=== PATIENT | male | born 1935 | race Caucasian/White ===

== ENCOUNTER 2017-04-16 22:38 | Inpatient (IN) | payer MEDICARE ==
--- NOTE | 2017-04-16 23:30 | ED Physician Chart ---
Chief Complaint/HPI - Patient Information Date Seen:: 04/16/17 Time Seen:: 22:50 Chief Complaint:: R hip pain History of Present Illness:: Brought in by ambulance from home because of R hip pain when he was found on the floor at home at about 9:30 pm this evening. Pt is Brazilian speaking. Interpretation is provided by his daughter Josie per pt's request. H & P are limited because pt has dementia and is not fully cooperative. No other injury or bodily pain. Pt does not appear to be in distress. Allergies:: Allergies Allergy/AdvReac Type Severity Reaction Status Date / Time No Known Allergies Allergy Verified 04/16/17 22:57 Vitals:: Vital Signs - 8 hr 04/16/17 22:40 Temp 98.3 F HR 60 RR 19 BP 120/54 O2 Sat % 99 Historian:: Patient, Family Member (Daughter Josie.) Family MD/PCP:: Dr. Handley LMP:: N/A Review:: Nurse's Note Reviewed Review of Systems - Review of Systems General/Constitutional: Other (Pt does not cooperate for ROS.) Past Medical History - Past Medical History Past Medical History: Dementia Family History: None Social History: Non Smoker, No Alcohol, No Drug Use, , Other (lives with his son.) Employment:: Retired. Surgical History: None Psychiatricy History: Dementia Medication: Reviewed Family Medical History - Family Member Daughter Ethnicity: Living Status: Still Living Physical Exam - Physical Examination General/Constitutional: Awake, Well-developed, well-nourished, Alert, No distress, Non-toxic appearing Other Gen/Cons comments:: Breathes comfortably, speaks clearly, but not fully cooperative. Head: Atraumatic Eyes: Lids, conjuctiva normal, PERRL, EOMI Skin: No ecchymosis, No lymphadenopathy Other Skin comments:: There is superficial abrasion noticed in proximal dorsal aspect of R forearm. No active bleeding. No gross deformity, ecchymosis, swelling, or tenderness. Good ROM of all joints in RUE. No detectable motor/sensory/vascular deficit. Good distal pulse. ENMT: External ears, nose nl, Nasal exam nl, Oropharynx nl Other ENMT comments:: Mucous membrane slightly dry. Neck: Nontender, Full ROM w/o pain, No JVD, No nuchal rigidity, No mass, No stridor Respiratory: Nl effort/Exclusion, Clear to Auscultation, No Wheeze/Rhonchi/Rales Cardio Vascular: RRR, No murmur, gallop, rubs, NL S1 S2 GI: No tenderness/rebounding/guarding, No organomegaly, No hernia, Normal BS's, Nondistended, No mass/bruits, No McBurney tenderness Other GI comments:: Abdomen is soft. Other Extremities comments:: RLE: tenderness in R hip with minimal movement. R hip is laterally rotated with mild shortening of RLE. No ecchymosis, erythema, swelling, or open wound noticed. No detectable motor/sensory/vascular deficit. Good distal pulse. Other Neuro/Psych comments:: Alert, knows his name, that he is in hospital and it is evening. Spontaneous movements noticed in all 4 extremities. Pt does not cooperate for full neurological exam. Labs/Radiology/EKG Results - Lab Results Results: Laboratory Tests 04/16/17 04/16/17 04/16/17 23:46 23:46 23:46 WBC 13.2 H RBC 3.17 L Hgb 10.8 L Hct 30.9 L MCV 97.6 MCH 34.2 H MCHC Differential 35.0 RDW 12.1 Plt Count 191 MPV 8.0 PT 10.2 INR 0.98 PTT (Actin FS) 25.9 L Sodium 135 L Potassium 3.4 L Chloride 100 Carbon Dioxide 26.3 Anion Gap 12.1 BUN 27 H Creatinine 3.6 H Est GFR ( Amer) TNP Est GFR (Non-Af Amer) TNP BUN/Creatinine Ratio 7.5 Glucose 132 H Whole Bld Lactic Acid Calcium 8.8 Total Bilirubin 0.5 AST 11 L ALT 6 L Alkaline Phosphatase 60 Creatine Kinase 59 Troponin I Total Protein 6.9 Albumin 3.4 L Globulin 3.5 Albumin/Globulin Ratio 1.0 04/16/17 04/17/17 23:46 00:20 WBC RBC Hgb Hct MCV MCH MCHC Differential RDW Plt Count MPV PT INR PTT (Actin FS) Sodium Potassium Chloride Carbon Dioxide Anion Gap BUN Creatinine Est GFR ( Amer) Est GFR (Non-Af Amer) BUN/Creatinine Ratio Glucose Whole Bld Lactic Acid 1.47 Calcium Total Bilirubin AST ALT Alkaline Phosphatase Creatine Kinase Troponin I 0.01 Total Protein Albumin Globulin Albumin/Globulin Ratio - Radiology Results Results: R hip X-ray: Based on my interpretation, intertrochanteric fracture. Official report is pending. - EKG Interpretations EKG Time:: 23:42 Rate & Rhythm: NSR with VR 62 Comments:: Normal ED Septic Shock - . Is Septic Shock (SBP<90, OR Lactate>4 mmol\L) present?: No - <6hrs of presentation: Vital Signs: Vital Signs - 8 hr 04/16/17 22:40 Temp 98.3 F HR 60 RR 19 BP 120/54 O2 Sat % 99 Reassessment (Disposition) - Reassessment Reassessment:: 2340 Pt remains stable. Pain medication was offered. Pt declined and stated that he only has pain when he moves his R hip only. 0125 Remaining lab results and R hip X-ray just became available. EKG, lab, and radiological findings have been reviewed with pt. Management plan has been discussed. Interpretation by his daughter Josie. 0135 Case was discussed with Dr. Vences with pertinent H & P, EKG, lab, and X -ray findings reviewed. Pt is to be admitted to [facility] under his care. He will arrange orthopedic consultation for pt in hospital. Reassessment Condition:: Improved - Diagnosis Diagnosis:: s/p fall with R hip fracture and R forearm abrasion, stable. Dehydration. Elevated BUN/Cr c/w renal insufficiency superimposed with prerenal azotemia. Mild hypokalemia. Mild anemia. - Patient Disposition Admitted to:: Med/Surg Admitting Medical Physician:: Laith Vences Time:: 01:40 Condition at Disposition:: Stable ED Discharge Plan - Patient Disposition Admit/Discharge/Transfer: Acute Care w/in this hosp
[2017-04-16] MEDS ORDERED: Triple Antibiotic 0.94 gm Pkt TP STA (23:40)
[2017-04-16 23:55] LABS: HEMOGLOBIN 10.8 gm/dL (12.6-17.4); RED CELL DISTRIBUTION WIDTH 12.1 % (11.5-20.0)
[2017-04-17] LABS: HEMATOCRIT 30.9 % (39.0-49.0); MEAN CELL VOLUME 97.6 fl (80-99); MEAN CORPUSCULAR HEMOGLOBIN 34.2 pg (27.0-31.0); PLATELET COUNT 191 Th/cmm (150-400); RED BLOOD COUNT 3.17 Mil/cmm (3.80-5.80)
[2017-04-17] MEDS ORDERED: Triple Antibiotic 0.94 gm Pkt TP ONE (00:05)
[2017-04-17 00:08] LABS: WHITE BLOOD COUNT 13.2 Th/cmm (4.8-10.8)
[2017-04-17 00:10] LABS: ALKALINE PHOSPHATASE 60 U/L (34-104); ANION GAP 12.1 (7.0-16.0); BILIRUBIN,TOTAL 0.5 mg/dL (0.3-1.0); BUN - UREA NITROGEN 27 mg/dL (7-25); BUN/CREATININE RATIO 7.5; CALCIUM SERUM 8.8 mg/dL (8.6-10.3); CARBON DIOXIDE 26.3 mEq/L (21.0-31.0); CHLORIDE 100 mEq/L (98-107); CREATININE - SERUM 3.6 mg/dL (0.7-1.3); GLUCOSE 132 mg/dL (70-105); INR 0.98 (0.5-1.4); POTASSIUM SERUM 3.4 mEq/L (3.5-5.1); PROTHROMBIN TIME (TEST) 10.2 SECONDS (9.5-11.5); SGOT 11 U/L (13-39); SGPT/ALT 6 U/L (7-52); SODIUM SERUM 135 mEq/L (136-145)
[2017-04-17] MEDS ORDERED: Sodium Chloride 0.9% 1,000 ML IV ONE (01:23)
[2017-04-17] MEDS ORDERED: Potassium Chloride 20 mEq ER Tab PO ONE ×2 (01:23→01:26)
[2017-04-17] MEDS ORDERED: Sodium Chloride 0.9% 1,000 ML IV SCH (02:18)
[2017-04-17] MEDS: HYDROmorphone 1 mg/mL 1mL Syr IVP PRN ×3 (02:28→16:30)
[2017-04-17 02:36] LABS: BAND NEUTROPHILE 2 % (0-10); NEUTROPHILS 86 % (40-80); TOTAL CELLS COUNTED 100
[2017-04-17 02:37] LABS: PLATELET ESTIMATE ADEQUATE (NORMAL)
--- NOTE | 2017-04-17 08:05 | Admit Criteria Form ---
Admit Criteria Forms - Admit Criteria Diagnosis: MUSCULOSKELETAL DISEASE [facility] Clinical Indications for Admission to Inpatient Care (Place 'X' for any and all applicable criteria): Hospital admission is needed for appropriate care of the patient because of 1 or more of the following: [X ]I. Fracture, dislocation, or other musculoskeletal injury requiring inpatient care(medical) as indicated by 1 or more of the following(4)(5)(6)(7) [ ]a) Vertebral fracture requiring observation for instability or neurologic compromise (8) [ ]b) Compartment syndrome (proven or cannot be ruled out during observation level of care) (9) [ ]c) Limb-threatening injury [ ]d) Major injury requiring inpatient stabilization such as traction initiation or external fixation before internal fixation or closure of complex or open fracture [X ]e) Major injury requiring inpatient treatment after emergency or observation level care (as appropriate) [X ]f) Severe pain requiring acute inpatient management [ ]g) Injury with suspicion of abuse or neglect (eg., child, dependent elderly) [ ]II. Newly diagnosed or suspected bone, joint, or orthopedic device infection (e.g., osteomyelitis, septic arthritis) needing 1 or more of the following(1)(2)(3) [ ]a) IV antibiotics that cannot be initiated in other than inpatient setting (e.g., patient too unstable or home infusion not available) [ ]b) Device removal or replacement [ ]c) Bone or soft tissue debridement [ ]d) Joint drainage (drain placement or repetitive aspirations) [ ]III. Severe rheumatologic disease (e.g., systemic lupus erythematosus, rheumatoid arthritis) with complications or comorbidities (Also use Optimal Recovery Care Criteria or General Recovery Criteria as appropriate on the basis of predominant condition), including 1 or more of the following( 10)(11)(12)(13) [ ]a) Severe infection (e.g., [employer] infection, sepsis) (14) [ ]b) Respiratory complications, including 1 or more of the following : [ ]i) Pleural effusion with respiratory compromise [ ]ii) Pulmonary hypertension with congestive failure [ ]iii) Respiratory failure [ ]iv) Pulmonary hemorrhage (15) [ ]c) Hematologic disease, including 1 or more of the following: [ ]i) Coagulopathy with bleeding [ ]ii) Thrombosis with hypercoagulable state [ ]iii) Thrombotic thrombocytopenic purpura [ ]d) Cerebritis with seizures, psychosis, or other severe abnormalities [ ]e) Vertebral destruction with monitoring needed for cervical myelopathy& possible respiratory compromise [ ]f) Exacerbation that requires inpatient treatment (e.g., intravenous immunosuppression) (16) [ ]g) Acute renal failure [ ]h) Cerebritis with seizures, psychosis, Altered mental status, or other neurologic abnormalities [ ]i) Pericardial effusion with tamponade [ ]j) Vertebral destruction, with monitoring needed for cervical myelopathy and possible respiratory compromise [ ]IV. Severe vasculitis with complications or comorbidities (Also use Optimal Recovery Care Criteria General Recovery Criteria as appropriate on the basis of predominant condition), including 1 or more of the following(11)(12)(17)(18)(19)(20) [ ]a) Exacerbation that requires inpatient treatment (e.g., intravenous immunosuppression) (19)(21) [ ]b) Pulmonary hemorrhage (15) [ ]c) [employer] vasculitis with seizures, psychosis, Altered mental status that is severe or persistent, or other severe abnormalities (22) [ ]d) Cerebral infarction [ ]e) Gastrointestinal ischemia [ ]f) Gangrene or threatened amputation [ ]g) Renal failure (16) [ ]h) Other significant complications of vasculitis ( eg., tissue or organ ischemia, organ dysfunction ) [ ]V. Severe myopathy as indicated by 1 or more of the following (28)(29) [ ]a) New onset of airway compromise or inability to swallow [ ]b) Respiratory deterioration with observation needed for impending respiratory failure [ ]c) Exacerbation that requires inpatient treatment (e.g., intravenous immunosuppression) [ ]. Severe crystal gout (arthropathy) indicated by 1 or more of the following (23)(24) [ ]a) Severe pain requiring acute inpatient management [ ]b) Exacerbation that requires inpatient treatment (e.g., intravenous treatment) [ ]VII.Rhabdomyolysis and 1 or more of the following (25)(26)(27) [ ]a) Acute renal failure [ ]b) Need for intravenous hydration after emergency or observation level care (as appropriate) [ ]c) Inability to maintain oral hydration [ ]d) Change in mental status [ ]e) Electrolyte abnormality that remains after emergency or observation level care (as appropriate) [ ]VIII Post amputation complication, as indicated by ANY ONE of the following [ ]a) Infection [ ]b) Dehiscence [ ]c) Myodesis failure [ ]IX. Severe pain requiring acute inpatient management due to musculoskeletal condition [ ]X. Musculoskeletal Disease and ALL of the following: [ ]a) Symptom or finding for which emergency and observation care have failed or are not considered appropriate (Use General Criteria: Observation Care as appropriate) [ ]b) Presence of ANY ONE of the following [ ]i) A General Admission Criteria [ ]ii) A Pediatric General Admission Criteria The [email or web address] content created by [facility] has been revised. The portions of the content which have been revised are identified through the use of italic text or in bold, and [facility] has neither reviewed nor approved the modified material. All other unmodified content is copyright [facility]. Please see references footnoted in the original [facility] edition 2016 Admit Criteria Met?: Yes
--- NOTE | 2017-04-17 10:19 | Diagnostic Imaging Report ---
Pelvis and right hip 2 views Indication: pain Comparison: none Findings: There is a comminuted angulated right intertrochanteric fracture. No dislocation. Osteopenia is noted. Advanced degenerative changes of lower lumbar spine are noted. Impression: Comminuted angulated right femoral intertrochanteric fracture. Note ER team was aware of the findings at the time of the exam.
--- NOTE | 2017-04-17 11:51 | History & Physical ---
ADMIT DATE: 04/17/2017 CHIEF COMPLAINT: Right hip pain. HISTORY OF PRESENT ILLNESS: This is the case of an 82-year-old male who was brought by ambulance to Emergency Room secondary to the patient was found on the floor of his home. The patient was sent to Emergency Room for evaluation and treatment. During evaluation in ER, it was found that the patient had fracture of the right hip, reason why the patient was hospitalized. PAST MEDICAL HISTORY: The patient has past medical history of dementia, end-stage renal disease, and no more information was not obtained secondary to the patient's mental condition. PAST SURGICAL HISTORY: Not available. FAMILY HISTORY: Unremarkable. ALLERGIES: No known allergies. MEDICATIONS: Reviewed. REVIEW OF SYSTEMS: Information was not obtained secondary to the patient's mental condition. PHYSICAL EXAMINATION: GENERAL: Does reveal fairly nourished and developed male, awake, alert, confused, not oriented, in no acute distress. LUNGS: Bilateral air entry. No wheezing or crackles. HEART: Heart is rhythmic. HEENT: Head is normocephalic and atraumatic. Nose: No evidence of nasal obstruction. Eyes: Pupils reactive to light. Ears: No evidence of any discharge. Mouth: Fairly . ABDOMEN: Soft, nontender, bowel sound is present. EXTREMITIES: There is some tenderness on the right hip on minimal movement and right leg is rotated to the right side. NEUROLOGICAL: The patient is awake, alert, confused, in no acute distress. Neurological examination was not completed secondary to the patient's mental and physical condition. IMPRESSION: 1. Fracture of the right hip. 2. End-stage renal disease, on hemodialysis. 3. Anemia. PLAN: 1. The patient will be admitted to the medical surgical floor. 2. The patient will be continued with jail medications. 3. Consult with Dr. Islas, Nephrology. 4. Consult with Ortho. 5. Heparin lock. 6. Regular diet. JOB# [id number]
--- NOTE | 2017-04-18 03:02 | Consultation ---
DATE OF CONSULTATION: 04/17/2017 HISTORY OF PRESENT ILLNESS: The patient is an 82-year-old male with history of dementia, end-stage renal disease, hypertension, comes in with status post fall, right hip pain, and found to have right femoral fracture. The patient is admitted. PAST MEDICAL HISTORY: History of hypertension, dementia, end-stage renal disease, and anemia. PAST SURGICAL HISTORY: AV fistula. FAMILY HISTORY: Unremarkable. ALLERGIES: No known drug allergies. MEDICATIONS: As listed in chart. LABORATORY DATA: Shows white count is 13.2, H and H of 10.8 and 30.9, platelets 191,000, potassium is 3.4. BUN is 27, creatinine 3.6, and glucose is 132. PHYSICAL EXAMINATION: VITAL SIGNS: Blood pressure is 124/55, heart rate 67, and temperature 97.8. HEENT: Anicteric sclerae. NECK: Supple. No JVD. LUNGS: Clear to auscultation bilaterally. CARDIOVASCULAR: Regular rate and rhythm. ABDOMEN: Soft, nontender, and nondistended. EXTREMITIES: Shows right leg is severely shorter than the left leg. ASSESSMENT: This is an 82-year-old male status post fall with right hip fracture, end-stage renal disease, and hypertension, and anemia who got an order for hemodialysis for tomorrow orthopedic surgery evaluation. JOB# [id number]
[2017-04-18 07:24] LABS: HEMATOCRIT 30.7 % (39.0-49.0); HEMOGLOBIN 10.8 gm/dL (12.6-17.4); MEAN CELL VOLUME 98.2 fl (80-99); MEAN CORPUSCULAR HEMOGLOBIN 34.6 pg (27.0-31.0); MEAN CORPUSCULAR HGB CONC 35.2 pg (28.0-36.0); MEAN PLATELET VOLUME 8.1 fl; PLATELET COUNT 179 Th/cmm (150-400); RED BLOOD COUNT 3.12 Mil/cmm (3.80-5.80); RED CELL DISTRIBUTION WIDTH 12.6 % (11.5-20.0)
[2017-04-18 07:37] LABS: INR 0.95 (0.5-1.4); PROTHROMBIN TIME (TEST) 9.9 SECONDS (9.5-11.5)
[2017-04-18 07:41] LABS: WHITE BLOOD COUNT 14.3 Th/cmm (4.8-10.8)
[2017-04-18 07:49] LABS: ANION GAP 11.3 (7.0-16.0); BUN - UREA NITROGEN 38 mg/dL (7-25); CALCIUM SERUM 9.5 mg/dL (8.6-10.3); CARBON DIOXIDE 26.9 mEq/L (21.0-31.0); CHLORIDE 103 mEq/L (98-107); CREATININE - SERUM 3.8 mg/dL (0.7-1.3); GLUCOSE 116 mg/dL (70-105); POTASSIUM SERUM 4.2 mEq/L (3.5-5.1); SODIUM SERUM 137 mEq/L (136-145)
[2017-04-18 08:15] LABS: BAND NEUTROPHILE 2 % (0-10); NEUTROPHILS 80 % (40-80); TOTAL CELLS COUNTED 100
[2017-04-18] MEDS: Vitamin D3 2,000 IU SGL PO SCH (08:17)
[2017-04-18] MEDS: HYDROmorphone 1 mg/mL 1mL Syr IVP PRN ×2 (09:05→20:12)
--- NOTE | 2017-04-18 09:11 | General Progress Note ---
Subjective - Review of Systems Service Date: 04/18/17 Subjective: I am fine Objective - Results Result Diagrams: 04/18/17 07:00 04/18/17 07:00 Recent Labs: Laboratory Last Values WBC 14.3 Th/cmm (4.8-10.8) H 04/18/17 07:00 RBC 3.12 Mil/cmm (3.80-5.80) L 04/18/17 07:00 Hgb 10.8 gm/dL (12.6-17.4) L 04/18/17 07:00 Hct 30.7 % (39.0-49.0) L 04/18/17 07:00 MCV 98.2 fl (80-99) 04/18/17 07:00 MCH 34.6 pg (27.0-31.0) H 04/18/17 07:00 MCHC Differential 35.2 pg (28.0-36.0) 04/18/17 07:00 RDW 12.6 % (11.5-20.0) 04/18/17 07:00 Plt Count 179 Th/cmm (150-400) 04/18/17 07:00 MPV 8.1 fl 04/18/17 07:00 Band Neutrophils % 2 % (0-10) 04/18/17 07:00 Neutrophils (Manual) 80 % (40-80) 04/18/17 07:00 Lymphocytes 10 % (20-50) L 04/18/17 07:00 Monocytes 8 % (2-10) 04/18/17 07:00 Platelet Estimate ADEQUATE (NORMAL) 04/16/17 23:46 PT 9.9 SECONDS (9.5-11.5) 04/18/17 07:00 INR 0.95 (0.5-1.4) 04/18/17 07:00 PTT (Actin FS) 25.6 SECONDS (26.0-38.0) L 04/18/17 07:00 Sodium 137 mEq/L (136-145) 04/18/17 07:00 Potassium 4.2 mEq/L (3.5-5.1) 04/18/17 07:00 Chloride 103 mEq/L (98-107) 04/18/17 07:00 Carbon Dioxide 26.9 mEq/L (21.0-31.0) 04/18/17 07:00 Anion Gap 11.3 (7.0-16.0) 04/18/17 07:00 BUN 38 mg/dL (7-25) H 04/18/17 07:00 Creatinine 3.8 mg/dL (0.7-1.3) H 04/18/17 07:00 Est GFR ( Amer) TNP 04/18/17 07:00 Est GFR (Non-Af Amer) TNP 04/18/17 07:00 BUN/Creatinine Ratio 10.0 04/18/17 07:00 Glucose 116 mg/dL (70-105) H 04/18/17 07:00 Whole Bld Lactic Acid 1.47 mmol/L (0.60-1.99) 04/17/17 00:20 Calcium 9.5 mg/dL (8.6-10.3) 04/18/17 07:00 Total Bilirubin 0.5 mg/dL (0.3-1.0) 04/16/17 23:46 AST 11 U/L (13-39) L 04/16/17 23:46 ALT 6 U/L (7-52) L 04/16/17 23:46 Alkaline Phosphatase 60 U/L (34-104) 04/16/17 23:46 Creatine Kinase 59 U/L (30-223) 04/16/17 23:46 Troponin I 0.01 ng/mL (0.01-0.05) 04/16/17 23:46 Total Protein 6.9 gm/dL (6.0-8.3) 04/16/17 23:46 Albumin 3.4 gm/dL (4.2-5.5) L 04/16/17 23:46 Globulin 3.5 gm/dL 04/16/17 23:46 Albumin/Globulin Ratio 1.0 (1.0-1.8) 04/16/17 23:46 - Physical Exam Vitals and I&O: Vital Signs Temp 98.0 F 04/18/17 04:00 Pulse 73 04/18/17 04:00 Resp 18 04/18/17 04:00 BP 121/71 04/18/17 04:00 Pulse Ox 98 04/18/17 04:00 Intake & Output 04/17/17 04/18/17 04/18/17 18:59 06:59 18:59 Intake Total 100 Balance 100 Weight (lbs) 62.777 kg Intake: Oral 100 Active Medications: Current Medications Fludrocortisone Acetate (Florinef) 0.5 mg PO DAILY [facility] Stop: 06/17/17 08:59 Last Admin: 04/18/17 08:17 Dose: Not Given Hydromorphone HCl (Dilaudid) 1 mg IVP Q6H PRN PRN Reason: Pain (Moderate) Stop: 06/16/17 08:36 Last Admin: 04/18/17 09:05 Dose: 1 mg Lorazepam (Ativan) 1 mg IVP Q6HR PRN; Protocol PRN Reason: Agitation Stop: 06/16/17 20:31 Last Admin: 04/17/17 22:04 Dose: 1 mg Miscellaneous (Clinical Monitoring) 1 ea MC DAILY PRN PRN Reason: RENAL Stop: 06/17/17 07:56 Vitamin D (Vitamin D3) 2,000 iu PO DAILY [facility] Stop: 06/17/17 08:59 Last Admin: 04/18/17 08:17 Dose: Not Given General: Alert, Other (Confused) HEENT: Atraumatic Neck: Supple Cardiovascular: Regular rate Lungs: Clear to auscultation Abdomen: Bowel sounds, Soft Extremities: Other (Traction in left leg) Neurological: Other (Non ambulatory) Skin: Other (Warm and dry) Psych/Mental Status: Other (Awake, calm, confused) Assessment/Plan - Assessment Assessment: Patient is awake, alert, calm, confused, in no acute distress. Today WBC increased. Dx: Fracture lef hip, ESRD on HD, Anemia - Plan Plan: patient already evaluated by ortho, As soon patient is medical clear surgery will be done. CXR and UA requested.
--- NOTE | 2017-04-18 09:59 | Diagnostic Imaging Report ---
Portable chest x-ray HISTORY: Cough The overall heart size appears normal. Atherosclerotic calcification seen in the aorta. There is accentuation of the lower interstitial lung markings. No acute focal processes are seen. IMPRESSION: 1. Accentuation of the lower interstitial lung markings. However, no acute focal processes are seen. 2. Atherosclerotic vascular changes
[2017-04-18] MEDS ORDERED: cefTRIAXone 1 GM in Sodium Chloride 0.9% 50 ML IV SCH (13:45)
[2017-04-19] MEDS: HYDROmorphone 1 mg/mL 1mL Syr IVP PRN ×4 (02:21→21:45)
--- NOTE | 2017-04-19 03:07 | Consultation ---
DATE OF CONSULTATION: 04/18/[address] Vences. HISTORY AND PHYSICAL: This is an 82-year-old male patient who had a fall at a [facility]. Following this, the patient developed right hip fracture and the patient is seen in [facility]. Medical clearance is requested prior to surgery. PAST MEDICAL HISTORY: Osteoporosis; diabetes mellitus type 2; diabetic CKD stage V; end-stage renal disease, on dialysis; hypertension; and iron deficiency anemia. FAMILY HISTORY: Unremarkable. SOCIAL HISTORY: No history of smoking or alcohol abuse. ALLERGIES: None. PHYSICAL EXAMINATION: VITAL SIGNS: Blood pressure 140/70, pulse 80, and respirations 20. HEAD: Normocephalic. No lumps or bumps. EYES: Pupils are equal and reactive to light. Fundi show AV nicking, sclerae white, and conjunctivae pink. NECK: Carotid 2+. Normal upstroke. JVD flat. Thyroid not palpable. Lymph nodes not palpable. CHEST: Shows increased AP diameter. No kyphosis or scoliosis. LUNGS: Bilateral bronchovesicular breath sounds. HEART: PMI fifth intercostal space with lateral to midclavicular line. S1, S2. No S3, S4. Systolic murmur, grade 2/6, lower left sternal border without radiation. ABDOMEN: Soft. Liver and spleen not palpable. No organomegaly. Bowel sounds are active. NEUROLOGIC: Unremarkable. EXTREMITIES: Peripheral pulses 2+. No pedal edema. Pain and tenderness of the right hip. CLINICAL IMPRESSION: Right hip fracture; diabetes mellitus type 2; diabetic chronic kidney disease stage V; end-stage renal disease, on dialysis; hypertension; and iron deficiency anemia. PLAN: The patient's echocardiogram unremarkable. Ejection fraction 55%. The patient is cleared for surgery. JOB# [id number]
--- NOTE | 2017-04-19 04:46 | Consultation ---
DATE OF CONSULTATION: 04/18/2017 HISTORY OF PRESENT ILLNESS: The patient is an 82-year-old gentleman admitted via the Emergency Room with a fracture of the right hip. He is not able to give much history. The record indicates he was found on the floor at home by his family and brought to the hospital and found to have the fracture and admitted. PAST HISTORY: He has diagnoses of diabetes, on dialysis with end-stage renal disease, dementia was also mentioned, prior hospitalization and surgery is not available. EXAMINATION: GENERAL: The patient was examined in his hospital room at [facility]. When asked whether he is having pain in his hip, he stated no. HEENT: Head is atraumatic, normocephalic. EXTREMITIES: Upper extremities unremarkable as is the left lower extremity. Right lower extremity, there is swelling about the hip and as I moved it slightly, he did have pain. Ankles are dry. Peripheral pulses thready. Sensation difficult to assess. X-rays of these images in the PACS. The right hip, there is a comminuted slightly displaced intertrochanteric fracture. ORTHOPEDIC DIAGNOSIS: Intertrochanteric fracture, right hip, closed, displaced. RECOMMENDATIONS: The patient is medically cleared and optimized, he can have surgery for open reduction and internal fixation of the intertrochanteric fracture of the right hip. Thank you for this interesting referral. JOB# [id number]
[2017-04-19 05:52] LABS: URINE BILIRUBIN NEGATIVE (NEGATIVE); URINE BLOOD MODERATE (NEGATIVE); URINE COLOR YELLOW; URINE GLUCOSE (UA) NEGATIVE (NEGATIVE); URINE KETONE NEGATIVE (NEGATIVE); URINE PH 8.5
[2017-04-19 05:53] LABS: URINE BACTERIA MANY /hpf (NONE SEEN); URINE EPITHELIAL CELLS FEW /lpf (FEW); URINE PROTEIN 100 mg/dL (NEGATIVE); URINE WBC >100 /hpf (0-5)
[2017-04-19 06:02] LABS: % BASOPHILS 0.7 % (0.0-2.0); % EOSINOPHILS 0.8 % (0.0-5.0); % LYMPHOCYTES 9.1 % (20.0-50.0); % MONOCYTES 8.3 % (2.0-10.0); % NEUTROPHILS 81.1 % (40.0-80.0); HEMATOCRIT 30.6 % (39.0-49.0); HEMOGLOBIN 10.8 gm/dL (12.6-17.4); MEAN CORPUSCULAR HEMOGLOBIN 34.8 pg (27.0-31.0); MEAN CORPUSCULAR HGB CONC 35.5 pg (28.0-36.0); NEUTROPHILE ABSOLUTE 9.3 Th/cmm (1.8-8.0); PLATELET COUNT 189 Th/cmm (150-400); RED BLOOD COUNT 3.12 Mil/cmm (3.80-5.80); RED CELL DISTRIBUTION WIDTH 12.3 % (11.5-20.0); WHITE BLOOD COUNT 11.5 Th/cmm (4.8-10.8)
[2017-04-19 06:23] LABS: INR 0.97 (0.5-1.4); PROTHROMBIN TIME (TEST) 10.1 SECONDS (9.5-11.5)
[2017-04-19 06:27] LABS: ALKALINE PHOSPHATASE 60 U/L (34-104); BILIRUBIN,TOTAL 0.8 mg/dL (0.3-1.0); BUN - UREA NITROGEN 33 mg/dL (7-25); BUN/CREATININE RATIO 8.7; CALCIUM SERUM 9.3 mg/dL (8.6-10.3); CARBON DIOXIDE 29.9 mEq/L (21.0-31.0); CHLORIDE 100 mEq/L (98-107); CREATININE - SERUM 3.8 mg/dL (0.7-1.3); GLUCOSE 119 mg/dL (70-105); POTASSIUM SERUM 3.9 mEq/L (3.5-5.1); SGOT 21 U/L (13-39); SGPT/ALT 10 U/L (7-52); SODIUM SERUM 138 mEq/L (136-145)
[2017-04-19] MEDS: Vitamin D3 2,000 IU SGL PO SCH (08:06)
--- NOTE | 2017-04-19 08:39 | General Progress Note ---
Subjective - Review of Systems Service Date: 04/19/17 Subjective: I am fine Objective - Results Result Diagrams: 04/19/17 05:46 04/19/17 05:46 Recent Labs: Laboratory Last Values WBC 11.5 Th/cmm (4.8-10.8) H 04/19/17 05:46 RBC 3.12 Mil/cmm (3.80-5.80) L 04/19/17 05:46 Hgb 10.8 gm/dL (12.6-17.4) L 04/19/17 05:46 Hct 30.6 % (39.0-49.0) L 04/19/17 05:46 MCV 98.0 fl (80-99) 04/19/17 05:46 MCH 34.8 pg (27.0-31.0) H 04/19/17 05:46 MCHC Differential 35.5 pg (28.0-36.0) 04/19/17 05:46 RDW 12.3 % (11.5-20.0) 04/19/17 05:46 Plt Count 189 Th/cmm (150-400) 04/19/17 05:46 MPV 8.0 fl 04/19/17 05:46 Neutrophils % 81.1 % (40.0-80.0) H 04/19/17 05:46 Band Neutrophils % 2 % (0-10) 04/18/17 07:00 Lymphocytes % 9.1 % (20.0-50.0) L 04/19/17 05:46 Monocytes % 8.3 % (2.0-10.0) 04/19/17 05:46 Eosinophils % 0.8 % (0.0-5.0) 04/19/17 05:46 Basophils % 0.7 % (0.0-2.0) 04/19/17 05:46 Neutrophils (Manual) 80 % (40-80) 04/18/17 07:00 Lymphocytes 10 % (20-50) L 04/18/17 07:00 Monocytes 8 % (2-10) 04/18/17 07:00 Platelet Estimate ADEQUATE (NORMAL) 04/16/17 23:46 PT 10.1 SECONDS (9.5-11.5) 04/19/17 05:46 INR 0.97 (0.5-1.4) 04/19/17 05:46 PTT (Actin FS) 25.6 SECONDS (26.0-38.0) L 04/18/17 07:00 Sodium 138 mEq/L (136-145) 04/19/17 05:46 Potassium 3.9 mEq/L (3.5-5.1) 04/19/17 05:46 Chloride 100 mEq/L (98-107) 04/19/17 05:46 Carbon Dioxide 29.9 mEq/L (21.0-31.0) 04/19/17 05:46 Anion Gap 12.0 (7.0-16.0) 04/19/17 05:46 BUN 33 mg/dL (7-25) H 04/19/17 05:46 Creatinine 3.8 mg/dL (0.7-1.3) H 04/19/17 05:46 Est GFR ( Amer) TNP 04/19/17 05:46 Est GFR (Non-Af Amer) TNP 04/19/17 05:46 BUN/Creatinine Ratio 8.7 04/19/17 05:46 Glucose 119 mg/dL (70-105) H 04/19/17 05:46 Whole Bld Lactic Acid 1.47 mmol/L (0.60-1.99) 04/17/17 00:20 Calcium 9.3 mg/dL (8.6-10.3) 04/19/17 05:46 Total Bilirubin 0.8 mg/dL (0.3-1.0) 04/19/17 05:46 AST 21 U/L (13-39) 04/19/17 05:46 ALT 10 U/L (7-52) 04/19/17 05:46 Alkaline Phosphatase 60 U/L (34-104) 04/19/17 05:46 Creatine Kinase 59 U/L (30-223) 04/16/17 23:46 Troponin I 0.01 ng/mL (0.01-0.05) 04/16/17 23:46 Total Protein 7.5 gm/dL (6.0-8.3) 04/19/17 05:46 Albumin 3.8 gm/dL (4.2-5.5) L 04/19/17 05:46 Globulin 3.7 gm/dL 04/19/17 05:46 Albumin/Globulin Ratio 1.0 (1.0-1.8) 04/19/17 05:46 Urine Source RANDOM 04/19/17 04:00 Urine Color YELLOW 04/19/17 04:00 Urine Clarity CLOUDY (CLEAR) 04/19/17 04:00 Urine pH 8.5 04/19/17 04:00 Ur Specific [place] 1.020 (1.005-1.030) 04/19/17 04:00 Urine Protein 100 mg/dL (NEGATIVE) H 04/19/17 04:00 Urine Glucose (UA) NEGATIVE mg/dL (NEGATIVE) 04/19/17 04:00 Urine Ketones NEGATIVE mg/dL (NEGATIVE) 04/19/17 04:00 Urine Blood MODERATE (NEGATIVE) H 04/19/17 04:00 Urine Nitrate NEGATIVE (NEGATIVE) 04/19/17 04:00 Urine Bilirubin NEGATIVE (NEGATIVE) 04/19/17 04:00 Urine Urobilinogen 1.0 E.U./dL (0.2 - 1.0) 04/19/17 04:00 Ur Leukocyte Esterase LARGE (NEGATIVE) H 04/19/17 04:00 Urine RBC 2-5 /hpf (0-5) H 04/19/17 04:00 Urine WBC >100 /hpf (0-5) H 04/19/17 04:00 Ur Epithelial Cells FEW /lpf (FEW) 04/19/17 04:00 Urine Bacteria MANY /hpf (NONE SEEN) 04/19/17 04:00 - Physical Exam Vitals and I&O: Vital Signs Temp 98.4 F 04/19/17 05:00 Pulse 72 04/19/17 05:00 Resp 19 04/19/17 05:00 BP 113/59 04/19/17 05:00 Pulse Ox 98 04/19/17 05:00 Intake & Output 04/18/17 04/19/17 04/19/17 18:59 06:59 18:59 Intake Total 50 60 Output Total 300 Balance 50 -240 Weight (lbs) 64.41 kg Intake: Intake, IV Amount 50 cefTRIAXone 1 gm In 50 Sodium Chloride 0.9% 50 ml @ 100 mls/hr IV Q24HR [facility] Rx#:[id number] Oral 60 Output: Urine 300 Stool 0 Other: # Bowel Movements 0 Active Medications: Current Medications Fludrocortisone Acetate (Florinef) 0.5 mg PO DAILY [facility] Stop: 06/17/17 08:59 Last Admin: 04/19/17 08:06 Dose: Not Given Hydromorphone HCl (Dilaudid) 1 mg IVP Q6H PRN PRN Reason: Pain (Moderate) Stop: 06/16/17 08:36 Last Admin: 04/19/17 08:00 Dose: 1 mg Ceftriaxone Sodium 1 gm/ (Sodium Chloride) 50 mls @ 100 mls/hr IV Q24HR [facility] Stop: 06/18/17 09:59 Lorazepam (Ativan) 1 mg IVP Q6HR PRN; Protocol PRN Reason: Agitation Stop: 06/16/17 20:31 Last Admin: 04/17/17 22:04 Dose: 1 mg Miscellaneous (Clinical Monitoring) 1 ea MC DAILY PRN PRN Reason: RENAL Stop: 06/17/17 07:56 Vitamin D (Vitamin D3) 2,000 iu PO DAILY [facility] Stop: 06/17/17 08:59 Last Admin: 04/19/17 08:06 Dose: Not Given General: Alert, No acute distress, Other (Confused) HEENT: Atraumatic Neck: Supple Cardiovascular: Regular rate Lungs: Clear to auscultation Abdomen: Bowel sounds, Soft Extremities: Other (No edema, no movement of right hip) Neurological: Other (Non ambulatory) Skin: Other (Warm and dry) Psych/Mental Status: Other (Confused) Assessment/Plan - Assessment Assessment: Patient is awake, alert, calm, confused, in no acute distress. Today WBC improved, UA shows UTI. Dx: Fracture lef hip, ESRD on HD, Anemia and UTI. - Plan Plan: patient already cleared for surgery. Possible surgery today. Will continue to monitor
[2017-04-19] MEDS: cefTRIAXone 1 GM in 0.9% NS 50 ML IV SCH (09:49)
[2017-04-19] MEDS ORDERED: Meperidine 25 mg/mL 1mL Syr IVP PRN (19:12)
[2017-04-19] MEDS ORDERED: Lactated Ringer 1,000 ML IV SCH (19:15)
--- NOTE | 2017-04-20 02:25 | Operative Report ---
DATE OF SURGERY: 04/19/2017 PREOPERATIVE DIAGNOSIS: Intertrochanteric fracture, right hip. POSTOPERATIVE DIAGNOSIS: Intertrochanteric fracture, right hip. SURGEON: Mike Polo M.D. FERMENTATION OPERATOR: Deborah Srinivasan M.D. ANESTHESIOLOGIST: Sonia Cadet M.D. ANESTHESIA: Spinal anesthesia. PROCEDURE: Open reduction and internal fixation intertrochanteric fracture, right hip. DESCRIPTION OF PROCEDURE: Following satisfactory anesthesia by Dr. Cadet, the patient was given intravenous antibiotic. He was placed on the fracture table and appropriately positioned and padded so as to avoid pressure areas. A closed reduction of the fracture was carried out and the right lower extremity placed in slight traction and in slight internal rotation. The result was viewed with the C-arm and the reduction appeared anatomic. The right hip and lower extremity were sterilely prepped and draped. The sterile ____ barrier drape was used. The routine timeout was performed. Under C-arm control, the tip of the greater trochanter was identified and marked on the skin. A 4 cm incision was then made above the greater trochanter and the incision taken down through fascia to bone. A periosteal elevator was used to reflect some of the soft tissue off the greater trochanter and then a guidewire passed into the proximal femur from the medial edge of the greater trochanter. The soft tissue protector was placed and then the reamer used to open up the proximal femur. A 12 mm reamer was passed on the femur and it fit well. A 20 cm long 125-degree angle nail was then passed down into the proximal femur. The alignment bar was placed in the nail position so that the alignment candida was in proper position to receive the hip nail. A smaller incision was made on the lateral side of the femur and the guide passed through this incision up against the bone. The 7 mm starting drill was used to open up the lateral cortex and then a guidewire passed up into the neck and head position and viewed through the C-arm and measurements were taken. A second hole was drilled and the secondary screw placed. A hole was drilled and the rotation bar was placed and then the main channel was drilled over the guidewire and a 95 mm long lag screw placed in the neck and head. The accompanying screw was placed in the smaller hole and tightened until it compacted against the main screw and it reduced the fracture nicely. The alignment guide was then used to place a 35 mm long transfixing screw in the lower pole and ____ hole. The final result was viewed through the C-arm, reduction appeared anatomic and the construct in good position. The guide was removed. The wound was irrigated and closed with 3-0 Vicryl in the deeper tissues and taniya on the skin. The wounds were washed with chlorhexidine and dried. Betadine ointment, Xeroform gauze, and sterile dressings were applied. Blood loss was modest at less than 100 mL. There was no replacement. There were no drains or tubes. IMMEDIATE POSTOPERATIVE CONDITION: Good. JOB# [id number]
[2017-04-20] MEDS: HYDROmorphone 1 mg/mL 1mL Syr IVP PRN ×3 (04:39→18:20)
--- NOTE | 2017-04-20 08:53 | General Progress Note ---
Subjective - Review of Systems Service Date: 04/20/17 Subjective: I fell tired. Objective - Results Result Diagrams: 04/19/17 05:46 04/19/17 05:46 Recent Labs: Laboratory Last Values WBC 11.5 Th/cmm (4.8-10.8) H 04/19/17 05:46 RBC 3.12 Mil/cmm (3.80-5.80) L 04/19/17 05:46 Hgb 10.8 gm/dL (12.6-17.4) L 04/19/17 05:46 Hct 30.6 % (39.0-49.0) L 04/19/17 05:46 MCV 98.0 fl (80-99) 04/19/17 05:46 MCH 34.8 pg (27.0-31.0) H 04/19/17 05:46 MCHC Differential 35.5 pg (28.0-36.0) 04/19/17 05:46 RDW 12.3 % (11.5-20.0) 04/19/17 05:46 Plt Count 189 Th/cmm (150-400) 04/19/17 05:46 MPV 8.0 fl 04/19/17 05:46 Neutrophils % 81.1 % (40.0-80.0) H 04/19/17 05:46 Band Neutrophils % 2 % (0-10) 04/18/17 07:00 Lymphocytes % 9.1 % (20.0-50.0) L 04/19/17 05:46 Monocytes % 8.3 % (2.0-10.0) 04/19/17 05:46 Eosinophils % 0.8 % (0.0-5.0) 04/19/17 05:46 Basophils % 0.7 % (0.0-2.0) 04/19/17 05:46 Neutrophils (Manual) 80 % (40-80) 04/18/17 07:00 Lymphocytes 10 % (20-50) L 04/18/17 07:00 Monocytes 8 % (2-10) 04/18/17 07:00 Platelet Estimate ADEQUATE (NORMAL) 04/16/17 23:46 PT 10.1 SECONDS (9.5-11.5) 04/19/17 05:46 INR 0.97 (0.5-1.4) 04/19/17 05:46 PTT (Actin FS) 25.6 SECONDS (26.0-38.0) L 04/18/17 07:00 Sodium 138 mEq/L (136-145) 04/19/17 05:46 Potassium 3.9 mEq/L (3.5-5.1) 04/19/17 05:46 Chloride 100 mEq/L (98-107) 04/19/17 05:46 Carbon Dioxide 29.9 mEq/L (21.0-31.0) 04/19/17 05:46 Anion Gap 12.0 (7.0-16.0) 04/19/17 05:46 BUN 33 mg/dL (7-25) H 04/19/17 05:46 Creatinine 3.8 mg/dL (0.7-1.3) H 04/19/17 05:46 Est GFR ( Amer) TNP 04/19/17 05:46 Est GFR (Non-Af Amer) TNP 04/19/17 05:46 BUN/Creatinine Ratio 8.7 04/19/17 05:46 Glucose 119 mg/dL (70-105) H 04/19/17 05:46 Whole Bld Lactic Acid 1.47 mmol/L (0.60-1.99) 04/17/17 00:20 Calcium 9.3 mg/dL (8.6-10.3) 04/19/17 05:46 Total Bilirubin 0.8 mg/dL (0.3-1.0) 04/19/17 05:46 AST 21 U/L (13-39) 04/19/17 05:46 ALT 10 U/L (7-52) 04/19/17 05:46 Alkaline Phosphatase 60 U/L (34-104) 04/19/17 05:46 Creatine Kinase 59 U/L (30-223) 04/16/17 23:46 Troponin I 0.01 ng/mL (0.01-0.05) 04/16/17 23:46 Total Protein 7.5 gm/dL (6.0-8.3) 04/19/17 05:46 Albumin 3.8 gm/dL (4.2-5.5) L 04/19/17 05:46 Globulin 3.7 gm/dL 04/19/17 05:46 Albumin/Globulin Ratio 1.0 (1.0-1.8) 04/19/17 05:46 Urine Source RANDOM 04/19/17 04:00 Urine Color YELLOW 04/19/17 04:00 Urine Clarity CLOUDY (CLEAR) 04/19/17 04:00 Urine pH 8.5 04/19/17 04:00 Ur Specific [place] 1.020 (1.005-1.030) 04/19/17 04:00 Urine Protein 100 mg/dL (NEGATIVE) H 04/19/17 04:00 Urine Glucose (UA) NEGATIVE mg/dL (NEGATIVE) 04/19/17 04:00 Urine Ketones NEGATIVE mg/dL (NEGATIVE) 04/19/17 04:00 Urine Blood MODERATE (NEGATIVE) H 04/19/17 04:00 Urine Nitrate NEGATIVE (NEGATIVE) 04/19/17 04:00 Urine Bilirubin NEGATIVE (NEGATIVE) 04/19/17 04:00 Urine Urobilinogen 1.0 E.U./dL (0.2 - 1.0) 04/19/17 04:00 Ur Leukocyte Esterase LARGE (NEGATIVE) H 04/19/17 04:00 Urine RBC 2-5 /hpf (0-5) H 04/19/17 04:00 Urine WBC >100 /hpf (0-5) H 04/19/17 04:00 Ur Epithelial Cells FEW /lpf (FEW) 04/19/17 04:00 Urine Bacteria MANY /hpf (NONE SEEN) 04/19/17 04:00 - Physical Exam Vitals and I&O: Vital Signs Temp 96.8 F 04/20/17 08:41 Pulse 78 04/20/17 08:41 Resp 19 04/20/17 08:41 BP 124/60 04/20/17 08:41 Pulse Ox 98 04/20/17 08:41 Intake & Output 04/19/17 04/20/17 04/20/17 18:59 06:59 18:59 Intake Total 0 5 Output Total 150 Balance 0 -145 Weight (lbs) 64.41 kg 61.462 kg Intake: Oral 0 5 Output: Urine 150 Other: # Voids 0 # Bowel Movements 0 0 Active Medications: Current Medications Fludrocortisone Acetate (Florinef) 0.5 mg PO DAILY [facility] Stop: 06/17/17 08:59 Last Admin: 04/19/17 08:06 Dose: Not Given Hydromorphone HCl (Dilaudid) 1 mg IVP Q6H PRN PRN Reason: Pain (Moderate) Stop: 06/16/17 08:36 Last Admin: 04/20/17 04:39 Dose: 1 mg Ceftriaxone Sodium 1 gm/ (Sodium Chloride) 50 mls @ 100 mls/hr IV Q24HR [facility] Stop: 06/18/17 09:59 Last Admin: 04/19/17 09:49 Dose: 100 mls/hr Lactated Ringer's (Lactated Ringer) 1,000 mls @ 0 mls/hr IV .Q0M [facility] PRN Reason: TKO Stop: 04/20/17 19:14 Lorazepam (Ativan) 1 mg IVP Q6HR PRN; Protocol PRN Reason: Agitation Stop: 06/16/17 20:31 Last Admin: 04/19/17 23:36 Dose: 1 mg Meperidine HCl (Demerol) 12.5 mg IVP UD PRN PRN Reason: POST-OP PAIN Stop: 04/20/17 19:11 Miscellaneous (Clinical Monitoring) 1 ea MC DAILY PRN PRN Reason: RENAL Stop: 06/17/17 07:56 Ondansetron HCl (Zofran) 4 mg IV UD PRN PRN Reason: Nausea / Vomiting Stop: 04/20/17 19:11 Vitamin D (Vitamin D3) 2,000 iu PO DAILY [facility] Stop: 06/17/17 08:59 Last Admin: 04/19/17 08:06 Dose: Not Given General: Alert, No acute distress HEENT: Atraumatic Neck: Supple Lungs: Clear to auscultation Abdomen: Bowel sounds Extremities: Other (No edema) Neurological: Other (Non ambulatory at this moment) Skin: Other (Warm and dry. Surgical wound cover) Psych/Mental Status: Other (Confused) - Procedures Procedures: Procedures Procedure Code Date REPOSITION RIGHT UPPER FEMUR WITH INT FIX, OPEN APPROACH [id number] 04/17/17 TREAT THIGH FRACTURE 22307 04/17/17 Assessment/Plan - Assessment Assessment: Patient is awake, alert, calm, confused, in no acute distress. Surgery done yesterday. Dx: Fracture lef hip, ESRD on HD, Anemia and UTI. - Plan Plan: patient had surgery yesterday. On AB. Will continue to monitor
[2017-04-20] MEDS: Vitamin D3 2,000 IU SGL PO SCH (09:01)
[2017-04-20] MEDS: cefTRIAXone 1 GM in 0.9% NS 50 ML IV SCH (09:02)
--- NOTE | 2017-04-20 09:26 | Diagnostic Imaging Report ---
Right hip (intraoperative fluoroscopic images and services) HISTORY: Fracture, surgery. Intraoperative fluoroscopic images and services were provided for facilitation of surgical intervention. 1 minute 14 seconds fluoroscopy time was utilized.
--- NOTE | 2017-04-20 17:58 | Cardiology ---
04/18/[address] Vences. M-MODE ECHOCARDIOGRAM: Mitral valve, anterior leaflets of mitral valve shows normal excursion, EF velocity. Posterior leaflet of mitral valve shows normal excursion. Left ventricular posterior wall shows increased thickness, normal excursion. Interventricular septum shows increased thickness, normal excursion, hypertrophy of the left ventricle, ejection fraction 55%. Left atrium normal. Aortic root showed normal dimension, normal excursion of aortic leaflets. CONCLUSION: Hypertrophy of the left ventricle, ejection fraction 55%. 2D ECHO: Long axis view showed normal sized left ventricle with hypertrophy of the left ventricle. Left atrium normal. Aortic root shows normal dimension, normal excursion of aortic leaflets. Short axis view of mitral valve normal. Short axis view of aortic valve normal. Apical four chamber view showed normal sized left ventricle with hypertrophy of the left ventricle. Left atrium normal. Right ventricular cavity, right atrium normal, no pericardial effusion. CONCLUSION: Hypertrophy of the left ventricle, ejection fraction 55%. Doppler study shows trace mitral regurgitation, tricuspid regurgitation, aortic regurgitation, and prominent A wave consistent with poor compliance of left ventricle. [facility]# [id number]
[2017-04-21] MEDS: HYDROmorphone 1 mg/mL 1mL Syr IVP PRN ×3 (01:18→19:01)
[2017-04-21 05:46] LABS: % BASOPHILS 0.5 % (0.0-2.0); % EOSINOPHILS 2.2 % (0.0-5.0); % LYMPHOCYTES 14.2 % (20.0-50.0); % MONOCYTES 8.3 % (2.0-10.0); % NEUTROPHILS 74.8 % (40.0-80.0); HEMATOCRIT 28.7 % (39.0-49.0); MEAN CORPUSCULAR HEMOGLOBIN 34.4 pg (27.0-31.0); MEAN CORPUSCULAR HGB CONC 34.7 pg (28.0-36.0); MEAN PLATELET VOLUME 8.3 fl; NEUTROPHILE ABSOLUTE 8.2 Th/cmm (1.8-8.0); PLATELET COUNT 205 Th/cmm (150-400); RED CELL DISTRIBUTION WIDTH 12.4 % (11.5-20.0); WHITE BLOOD COUNT 10.9 Th/cmm (4.8-10.8)
[2017-04-21 06:05] LABS: ALKALINE PHOSPHATASE 57 U/L (34-104); ANION GAP 10.7 (7.0-16.0); BILIRUBIN,TOTAL 0.7 mg/dL (0.3-1.0); BUN - UREA NITROGEN 34 mg/dL (7-25); BUN/CREATININE RATIO 9.4; CALCIUM SERUM 9.3 mg/dL (8.6-10.3); CARBON DIOXIDE 31.5 mEq/L (21.0-31.0); CHLORIDE 97 mEq/L (98-107); CREATININE - SERUM 3.6 mg/dL (0.7-1.3); GLUCOSE 120 mg/dL (70-105); POTASSIUM SERUM 3.2 mEq/L (3.5-5.1); SGOT 21 U/L (13-39); SGPT/ALT 9 U/L (7-52); SODIUM SERUM 136 mEq/L (136-145)
[2017-04-21] MEDS: cefTRIAXone 1 GM in 0.9% NS 50 ML IV SCH (09:20)
--- NOTE | 2017-04-21 09:32 | General Progress Note ---
Subjective - Review of Systems Service Date: 04/21/17 Subjective: I fell tired. Objective - Results Result Diagrams: 04/21/17 05:04 04/21/17 05:04 Recent Labs: Laboratory Last Values WBC 10.9 Th/cmm (4.8-10.8) H 04/21/17 05:04 RBC 2.90 Mil/cmm (3.80-5.80) L 04/21/17 05:04 Hgb 10.0 gm/dL (12.6-17.4) L 04/21/17 05:04 Hct 28.7 % (39.0-49.0) L 04/21/17 05:04 MCV 99.0 fl (80-99) 04/21/17 05:04 MCH 34.4 pg (27.0-31.0) H 04/21/17 05:04 MCHC Differential 34.7 pg (28.0-36.0) 04/21/17 05:04 RDW 12.4 % (11.5-20.0) 04/21/17 05:04 Plt Count 205 Th/cmm (150-400) 04/21/17 05:04 MPV 8.3 fl 04/21/17 05:04 Neutrophils % 74.8 % (40.0-80.0) 04/21/17 05:04 Band Neutrophils % 2 % (0-10) 04/18/17 07:00 Lymphocytes % 14.2 % (20.0-50.0) L 04/21/17 05:04 Monocytes % 8.3 % (2.0-10.0) 04/21/17 05:04 Eosinophils % 2.2 % (0.0-5.0) 04/21/17 05:04 Basophils % 0.5 % (0.0-2.0) 04/21/17 05:04 Neutrophils (Manual) 80 % (40-80) 04/18/17 07:00 Lymphocytes 10 % (20-50) L 04/18/17 07:00 Monocytes 8 % (2-10) 04/18/17 07:00 Platelet Estimate ADEQUATE (NORMAL) 04/16/17 23:46 PT 10.1 SECONDS (9.5-11.5) 04/19/17 05:46 INR 0.97 (0.5-1.4) 04/19/17 05:46 PTT (Actin FS) 25.6 SECONDS (26.0-38.0) L 04/18/17 07:00 Sodium 136 mEq/L (136-145) 04/21/17 05:04 Potassium 3.2 mEq/L (3.5-5.1) L 04/21/17 05:04 Chloride 97 mEq/L (98-107) L 04/21/17 05:04 Carbon Dioxide 31.5 mEq/L (21.0-31.0) H 04/21/17 05:04 Anion Gap 10.7 (7.0-16.0) 04/21/17 05:04 BUN 34 mg/dL (7-25) H 04/21/17 05:04 Creatinine 3.6 mg/dL (0.7-1.3) H 04/21/17 05:04 Est GFR ( Amer) TNP 04/21/17 05:04 Est GFR (Non-Af Amer) TNP 04/21/17 05:04 BUN/Creatinine Ratio 9.4 04/21/17 05:04 Glucose 120 mg/dL (70-105) H 04/21/17 05:04 Whole Bld Lactic Acid 1.47 mmol/L (0.60-1.99) 04/17/17 00:20 Calcium 9.3 mg/dL (8.6-10.3) 04/21/17 05:04 Total Bilirubin 0.7 mg/dL (0.3-1.0) 04/21/17 05:04 AST 21 U/L (13-39) 04/21/17 05:04 ALT 9 U/L (7-52) 04/21/17 05:04 Alkaline Phosphatase 57 U/L (34-104) 04/21/17 05:04 Creatine Kinase 59 U/L (30-223) 04/16/17 23:46 Troponin I 0.01 ng/mL (0.01-0.05) 04/16/17 23:46 Total Protein 7.2 gm/dL (6.0-8.3) 04/21/17 05:04 Albumin 3.5 gm/dL (4.2-5.5) L 04/21/17 05:04 Globulin 3.7 gm/dL 04/21/17 05:04 Albumin/Globulin Ratio 1.0 (1.0-1.8) 04/21/17 05:04 Urine Source RANDOM 04/19/17 04:00 Urine Color YELLOW 04/19/17 04:00 Urine Clarity CLOUDY (CLEAR) 04/19/17 04:00 Urine pH 8.5 04/19/17 04:00 Ur Specific [place] 1.020 (1.005-1.030) 04/19/17 04:00 Urine Protein 100 mg/dL (NEGATIVE) H 04/19/17 04:00 Urine Glucose (UA) NEGATIVE mg/dL (NEGATIVE) 04/19/17 04:00 Urine Ketones NEGATIVE mg/dL (NEGATIVE) 04/19/17 04:00 Urine Blood MODERATE (NEGATIVE) H 04/19/17 04:00 Urine Nitrate NEGATIVE (NEGATIVE) 04/19/17 04:00 Urine Bilirubin NEGATIVE (NEGATIVE) 04/19/17 04:00 Urine Urobilinogen 1.0 E.U./dL (0.2 - 1.0) 04/19/17 04:00 Ur Leukocyte Esterase LARGE (NEGATIVE) H 04/19/17 04:00 Urine RBC 2-5 /hpf (0-5) H 04/19/17 04:00 Urine WBC >100 /hpf (0-5) H 04/19/17 04:00 Ur Epithelial Cells FEW /lpf (FEW) 04/19/17 04:00 Urine Bacteria MANY /hpf (NONE SEEN) 04/19/17 04:00 - Physical Exam Vitals and I&O: Vital Signs Temp 97.4 F 04/21/17 04:00 Pulse 80 04/21/17 04:00 Resp 18 04/21/17 04:00 BP 104/58 04/21/17 04:00 Pulse Ox 96 04/21/17 04:00 Intake & Output 04/20/17 04/21/17 04/21/17 18:59 06:59 18:59 Intake Total 50 Output Total 1390 150 Balance -1340 -150 Weight (lbs) 62.256 kg 62.188 kg Intake: Intake, IV Amount 50 cefTRIAXone 1 gm In 50 Sodium Chloride 0.9% 50 ml @ 100 mls/hr IV Q24HR [facility] Rx#:[id number] Output: Urine 190 150 Hemodialysis 1200 Other: # Bowel Movements 0 0 Active Medications: Current Medications Fludrocortisone Acetate (Florinef) 0.5 mg PO DAILY [facility] Stop: 06/17/17 08:59 Last Admin: 04/20/17 10:14 Dose: 0.5 mg Hydromorphone HCl (Dilaudid) 1 mg IVP Q6H PRN PRN Reason: Pain (Moderate) Stop: 06/16/17 08:36 Last Admin: 04/21/17 01:18 Dose: 1 mg Ceftriaxone Sodium 1 gm/ (Sodium Chloride) 50 mls @ 100 mls/hr IV Q24HR [facility] Stop: 06/18/17 09:59 Last Admin: 04/21/17 09:20 Dose: 100 mls/hr Lorazepam (Ativan) 1 mg IVP Q6HR PRN; Protocol PRN Reason: Agitation Stop: 06/16/17 20:31 Last Admin: 04/19/17 23:36 Dose: 1 mg Mineral Oil (Mineral Oil 30 Ml) 30 ml PO DAILY PRN PRN Reason: Constipation Stop: 06/19/17 11:58 Last Admin: 04/20/17 16:37 Dose: 30 ml Miscellaneous (Clinical Monitoring) 1 ea MC DAILY PRN PRN Reason: RENAL Stop: 06/17/17 07:56 Vitamin D (Vitamin D3) 2,000 iu PO DAILY [facility] Stop: 06/17/17 08:59 Last Admin: 04/20/17 09:01 Dose: 2,000 iu General: Alert, Other (Confused) HEENT: Atraumatic Neck: Supple Cardiovascular: Regular rate Lungs: Clear to auscultation Abdomen: Bowel sounds, Soft Extremities: Other (No edema) Neurological: Other (Patient isreceiving PT) Skin: Other (Warm and dry) Psych/Mental Status: Other (Confused) - Procedures Procedures: Procedures Procedure Code Date REPOSITION RIGHT UPPER FEMUR WITH INT FIX, OPEN APPROACH [id number] 04/17/17 TREAT THIGH FRACTURE 08413 04/17/17 Assessment/Plan - Assessment Assessment: Patient is awake, alert, calm, confused, in no acute distress. Dx: Fracture lef hip, ESRD on HD, Anemia and UTI. - Plan Plan: patient is receiving PT. On AB. Will continue to monitor
[2017-04-21] MEDS: Vitamin D3 2,000 IU SGL PO SCH (09:38)
[2017-04-22] MEDS: HYDROmorphone 1 mg/mL 1mL Syr IVP PRN ×3 (01:01→13:04)
[2017-04-22] MEDS: Vitamin D3 2,000 IU SGL PO SCH (08:21)
[2017-04-22] MEDS: cefTRIAXone 1 GM in 0.9% NS 50 ML IV SCH (10:16)
[2017-04-22] MEDS ORDERED: Hydrocodone/APAP 5mg/325mg Tab PO PRN (12:38)
== END 2017-04-22 17:15 | DRG 480 ==
LOC: ER 22:38 → MSI 04-17 01:40
PROVIDERS: ADMIT General Practice; ATTEND General Practice
PROC: 5A1D60Z (ICD-10-PCS; 2017-04-18)
PROC: 0QS604Z Reposition Right Upper Femur with Internal Fixation Device, Open Approach (ICD-10-PCS; principal; 2017-04-19)
DX: S72.141A Displaced intertrochanteric fracture of right femur, initial encounter for closed fracture (principal); N18.6 End stage renal disease; I12.0 Hypertensive chronic kidney disease with stage 5 chronic kidney disease or end stage renal disease; F03.90 Unspecified dementia, unspecified severity, without behavioral disturbance, psychotic disturbance, mood disturbance, and anxiety; N39.0 Urinary tract infection, site not specified; E86.0 Dehydration; W19.XXXA Unspecified fall, initial encounter; E87.6 Hypokalemia; S50.811A Abrasion of right forearm, initial encounter; Y93.89 Activity, other specified; Y92.89 Other specified places as the place of occurrence of the external cause; Y99.8 Other external cause status; M81.0 Age-related osteoporosis without current pathological fracture; E11.22 Type 2 diabetes mellitus with diabetic chronic kidney disease; D50.9 Iron deficiency anemia, unspecified; Z99.2 Dependence on renal dialysis
CPT/HCPCS: 36415-UA; 71010-TC; 76000-TC; 80048-TC; 80053-TC; 81001-TC; 82550-TC; 83605; 84484-TC; 85007-TC; 85025-TC; 85027-TC; 85610-TC; 87086-90; 90937; 93005; 97530; J0690; J0696; J1170; J2001; J2060; J2704; J7030; V2790; X3900; X3904; Z7610